=== PATIENT | female | born 1960 | race Caucasian/White ===

== ENCOUNTER 2017-05-18 06:05 | Day surgery (SDC) | payer MEDICAID ==
[~2017-05-18] VITALS: Ht 160 cm; Wt 74.8 kg
[2017-05-18] MEDS ORDERED: METF850T PO (06:59)
[2017-05-18] MEDS ORDERED: LISI5TAB18 PO (06:59)
[2017-05-18] MEDS ORDERED: fentaNYL 0.05 MG/ML VIAL ONE (07:31)
[2017-05-18] MEDS ORDERED: LIDOCAINE JELLY 2% 30 ML TUBE TP ONE (07:31)
[2017-05-18] MEDS ORDERED: LIDOCAINE 2% 100 MG/5 ML UJET TP ONE (07:33)
[2017-05-18] MEDS ORDERED: METHYLENE BLUE 1% 10 MG/ML AMP ONE (08:19)
== END 2017-05-18 08:57 | disposition home or self-care (01) ==
LOC: MDS 06:05 → MMU 06:08 → MDS 08:57
PROVIDERS: ATTEND Internal Medicine Gastroenterology
DX: K63.5 Polyp of colon (principal); I10 Essential (primary) hypertension; E78.00 Pure hypercholesterolemia, unspecified; E11.9 Type 2 diabetes mellitus without complications; E66.9 Obesity, unspecified; Z80.0 Family history of malignant neoplasm of digestive organs; Z79.84 Long term (current) use of oral hypoglycemic drugs; Z79.899 Other long term (current) drug therapy
CPT/HCPCS: 82948; J3010; Q9968

== ENCOUNTER 2019-02-03 16:56 | Emergency (ER) | payer SELFPAY ==
[~2019-02-03] VITALS: Ht 154.9 cm; Wt 81.0 kg
[~2019-02-03 16:56] MED LIST: LISI5TAB18 PO; METF850T PO
[2019-02-03 17:00] VITALS: BP 140/78
--- NOTE | 2019-02-03 17:05 | NUR ---
Patient ambulated to bed 5 with family. RN evaluating patient at bedside.
--- NOTE | 2019-02-03 17:05 | NUR ---
BIB DAUGH[employer]. PT AAO X4 C/O MECHANICAL FALL TODAY AT 15:00. PT REPORTS WALKING INTO STORE AND TRIPPING OVER WELLS AND FELL ON LT BUTTOCKS. REPORTS NECK PAIN AT 7/10, PAIN TO RIGHT TOES. + CMS TO BILATERAL LOWER LEGS, STEADY GAIT. ER TO EVALUATE PT.
--- NOTE | 2019-02-03 17:06 | NUR ---
Dr. Coats evaluating patient at bedside.
[2019-02-03] MEDS ORDERED: IBUPROFEN 600 MG TAB PO ONE (17:15)
[2019-02-03 17:54] VITALS: BP 135/76
--- NOTE | 2019-02-03 17:54 | NUR ---
DR MORALES AT BEDSIDE FOR PT DISCHARGE Patient discharged with v/s stable. Written and verbal after care instructions given and explained. Patient alert, oriented and verbalized understanding of instructions. Ambulatory with steady gait. All questions addressed prior to discharge. ID band removed. Patient advised to follow up with PMD. Rx of NAPROSYN given. Patient educated on indication of medication including possible reaction and side effects. Opportunity to ask questions provided and answered.
== END 2019-02-03 17:45 | disposition home or self-care (01) ==
LOC: MED 16:56
DX: S63.91XA Sprain of unspecified part of right wrist and hand, initial encounter (principal); S93.601A Unspecified sprain of right foot, initial encounter; S70.02XA Contusion of left hip, initial encounter; Z79.84 Long term (current) use of oral hypoglycemic drugs; Z79.899 Other long term (current) drug therapy; W01.0XXA Fall on same level from slipping, tripping and stumbling without subsequent striking against object, initial encounter; Y93.89 Activity, other specified; Y92.59 Other trade areas as the place of occurrence of the external cause; Y99.8 Other external cause status
CPT/HCPCS: 73130; 73502; 73630; 99283; Q0092